=== PATIENT | female | born 1980 | race Caucasian/White ===

== ENCOUNTER 2022-05-16 | Inpatient (IN) | payer OTHER ==
[~2022-05-16] VITALS: Ht 172.7 cm; Wt 95.3 kg
[2022-05-16] MEDS ORDERED: ONDANSETRON ODT8 MG PO (05:28)
[2022-05-16] MEDS ORDERED: EXPECTA PRENAT1 EACH PO (05:28)
--- NOTE | 2022-05-16 10:47 | PR ---
[facility] [address] [facility] [place] [address] Signed Progress Notes IP Datetime Report Generated by CPN: 05/16/2022 10:47 PROGRESS NOTES: [id number] Impression: Normal Progression of Labor Procedures: Artificial ROM Plan: Continue Present Management; Anticipate Vaginal Delivery VITAL SIGNS: [id number] Vital Signs: Reviewed; Within Normal Limits EXAM: [id number] Dilatation: 2.0 Effacement: 40 Station: -2 Contractions: rare MEMBRANES: [id number] Membranes Status: Ruptured Comments: Contractions getting stronger, would like to try N2O. FETUS A: [id number] FHR Baseline: 130 Variability: Moderate 6-25bpm Accelerations: 15X15 FETUS B: [id number] Signing Physician: Mauricio Reza MD Copies: ~ *Electronically Signed* 05/16/22 1047 MAURICIO REZA MD PATIENT NAME: PATRICK MASCORRO PROGRESS NOTE DATE OF : 84 PHYSICIAN: MAURICIO REZA MD RPT #: [id number] REPORT IS CONFIDENTIAL AND NOT TO BE RELEASED WITHOUT AUTHORIZATION
--- NOTE | 2022-05-16 12:42 | PR ---
[facility] [address] [facility] [place], [place] [address] Signed Progress Notes IP Datetime Report Generated by CPN: 05/16/2022 12:42 PROGRESS NOTES: [id number] Impression: Normal Progression of Labor Procedures: Artificial ROM Plan: Continue Present Management; Anticipate Vaginal Delivery VITAL SIGNS: [id number] Vital Signs: Reviewed; Within Normal Limits EXAM: [id number] Dilatation: 6.0 Effacement: 75 Station: -3 Contractions: rare MEMBRANES: [id number] Membranes Status: Ruptured ROM Note: Ruptured by Alice SCHNEIDER Comments: Tolerating contractions well, using N20. Will continue monitoring, tyr more upright position. FETUS A: [id number] FHR Baseline: 130 Variability: Moderate 6-25bpm Accelerations: 15X15 FETUS B: [id number] Signing Physician: Cecilio Reza MD Copies: ~ *Electronically Signed* 05/16/22 1242 CECILIO REZA MD PATIENT NAME: PATRICK MASCORRO PROGRESS NOTE DATE OF : 84 PHYSICIAN: CECILIO REZA MD RPT #: [id number] REPORT IS CONFIDENTIAL AND NOT TO BE RELEASED WITHOUT AUTHORIZATION
--- NOTE | 2022-05-17 09:18 | PR ---
[facility] [address] [facility] [place] [address] Signed PP Progress Notes Datetime Report Generated by CPN: 05/17/2022 09:18 SUBJECTIVE: [id number] Pain: Within Normal Limits Nausea/Vomiting: Denies Vital Signs: [id number] Vital Signs: Reviewed; Within Normal Limits Notable Details: PP Hgb/Hct = 9.0/27.0 EXAM: Met Abdomen/Uterus: Normal Lochia: Normal Extremities: Normal IMPRESSION/PLAN/PROCEDURES: [id number] Impression: Normal Progression Plan: Discharge Procedures: None Progress Notes: Doing well would like to go home today. Has history of Dysphoric Milk Ejection Reflex, needing antidepressant and again beginning to feel like needs this. Signing Physician: Mauricio Reza MD Copies: ~ *Electronically Signed* 05/17/22917 MAURICIO REZA MD PATIENT NAME: PATRICK MASCORRO PROGRESS NOTE DATE OF : 84 PHYSICIAN: MAURICIO REZA MD RPT #: [id number] REPORT IS CONFIDENTIAL AND NOT TO BE RELEASED WITHOUT AUTHORIZATION
== END 2022-05-17 16:50 | disposition home or self-care (01) | DRG 807 ==
LOC: FBC
PROVIDERS: ADMIT General Practice; ATTEND General Practice
PROC: 10E0XZZ Delivery of Products of Conception, External Approach (ICD-10-PCS; principal; 2022-05-16)
PROC: 10907ZC Drainage of Amniotic Fluid, Therapeutic from Products of Conception, Via Natural or Artificial Opening (ICD-10-PCS; 2022-05-16)
PROC: 3E0P7VZ Introduction of Hormone into Female Reproductive, Via Natural or Artificial Opening (ICD-10-PCS; 2022-05-16)
DX: O48.0 Post-term pregnancy (principal); Z37.0 Single live birth; Z3A.40 40 weeks gestation of pregnancy; O77.0 Labor and delivery complicated by meconium in amniotic fluid; O90.81 Anemia of the puerperium; D64.9 Anemia, unspecified; Z87.891 Personal history of nicotine dependence; Z79.899 Other long term (current) drug therapy
CPT/HCPCS: 36415; 85027; 86850; 86900; 86901; A9270; J2590